=== PATIENT | male | born 1985 | race Caucasian/White ===

== ENCOUNTER 2017-02-04 19:50 | Emergency (ER) | payer SELFPAY ==
[~2017-02-04] VITALS: Ht 180.3 cm; Wt 106.6 kg
[~2017-02-04 19:50] MED LIST: ATIVAN2 MG PO; BACTRIM DS 8001 TAB PO; BACTROBAN22 TP; CELEXA20 MG PO; KEFLEX 500MG.500 MG PO; LORTAB 5/500 501 TAB PO; NOMEDS
--- NOTE | 2017-02-04 21:50 | Emergency Room Report ---
History of Present Illness Time Seen by 2009 Presenting Problem in Triage Pt arrived:Walked Presenting Problem:FELL AND CAUGHT SELF WITH L HAND . 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 N Clinical Suspician of Infection? N Mental Status: 1 - Regular (Normal Baseline) Sepsis Risk:Possible Sepsis Risk Have you (or family members/close friends) recently traveled outside the [place]? N If Yes, where/when: Have you had exposure to infectious disease within the past month? N TB? Other? Specify: Source patient, RN notes reviewed, family, old records Exam Limitations no limitations Comment fell with lt wrist injury tonight with pain and swelling Cardiac Chest Pain Chest pain indicative of cardiac No Timing/Duration this evening Severity moderate ALLERGIES Coded Allergies: No Known Allergies (07/24/15) Home Medications Active Scripts Mupirocin Calcium (Bactroban) 2 % TP BID #1 Ref 5 Prov: 02/15/11 Reported Medications No Home Medications (NO HOME MEDICATIONS) CITALOPRAM HYDROBROMIDE (Citalopram HBr) 20 MG PO DAILY Lorazepam (Ativan 2MG) 2 MG PO BID History Medical History General Angina: No CO: No Hypertension? No Hyperlipidemia? No CHF? No COPD? No Asthma? Yes Hernia? No Thyroid Problems? Yes CVA? No Seizures? No Diabetes? No UTI? No Stones? No GB Disease: No Hepatitis? No Cataracts? No Glaucoma? No MRSA? Yes TB? No Cancer? No More? No Immunization Hx DT/Tetanus 1-4 YRS Flu NEVER Pneumonia NEVER Surgical Hx Previous Surgery?Y Tonsils THYROID CYST REMOVED LT KNEE ARTHROSCOPY NASAL CYST REMOVED HYDROCELE Family History Family Hx Diabetes No CAD No Hypertension No Hyperlipidemia No Cancer No TB No Social History Smoking Hx Smoker: Current Every Day Smoker Tobacco: Yes Type Cigarettes Packs/day 1 1/2 - 2 Packs Alcohol Alcohol: No Drugs none Review of Systems All Other Systems Reviewed and Negative Constitutional denies fever Eyes denies drainage ENT denies: ear discharge, epistaxis, throat pain. Respiratory denies cough, denies shortness of breath, denies wheezing Cardiovascular denies chest pain, denies palpitations, denies syncope Gastrointestinal denies abdominal pain, denies diarrhea, denies vomiting Genitourinary denies: dysuria, frequency, hesitancy, hematuria. Musculoskeletal denies back pain, denies joint pain, denies joint swelling, denies neck pain Skin denies rash Psychiatric/Neurological denies headache, denies seizure Physical Exam Vital Signs Vital Signs Date Time Temp Pulse Resp B/P Pulse O2 O2 Flow FiO2 Ox Delivery Rate 02/04 1953 98.4 124 20 145/100 98 - WBC >12,000 or <4,000 or 10% bands? 2 or more SIRS Criteria Met? B/P:145/100 MAP:115 Creatinine >2.0? UA output<0.5ml/kg/hr for 2 hrs? Platelet count >100,000? Lactate >2.0mmol/1? INR >1.2 or PTT > than 60 sec? Evidence of Organ Dysfunction? Provider documented clinical suspician of infection? N Sepsis Criteria Count: 2 Sepsis Risk: Possible Sepsis Risk General Appearance no apparent distress Eye Exam - bilateral eye PERRL, bilateral eye EOMI Ear, Nose, Throat normal ENT inspection Neck supple Respiratory Status No: respiratory distress. Lung Sounds bilateral: lungs clear. 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 No Results/Orders Current Medication Orders Sig/David Start time Last Medication Dose Route Stop Time Status Admin Acetaminophen 1,000 MG ONCE ONE 02/04 2015 DCr 02/04 PO 02/04 Acetaminophen 0 .STK-MED ONE 02/04 2006 DCr PO Orders Procedure Date/time Status WRIST-3 VIEWS-LT 02/05 2004 Active XRAY/CT/US XRAY/CT/US XRAY wrist XR interpretation by reviewed by me Xray Results abnormal (fx seen) Departure Departure Time of Disposition 2141 Disposition DC Home or Self Care(routine) Clinical Impression Primary Impression: Wrist fracture, left Qualifiers: Encounter type: initial encounter Fracture type: closed Qualified Code: S62.102A - Fracture of unspecified carpal bone, left wrist, initial encounter for closed fracture Condition STABLE Referrals Lester Euceda MD Patient Instructions DI for Wrist Fracture Additional Instructions wear splint and use advil and pain meds and see ortho for follow up Discharge Counseling Counseled pt/family regarding diagnosis, test results, follow up needs ED Critical Care Critical Care No at [id number]
[2017-02-04 22:05] VITALS: BP 135/78
--- NOTE | 2017-02-05 05:57 | RADIOLOGY REPORT PS360 ---
WRIST-3 VIEWS-LT HISTORY: Pain following injury FELL ORDERING PHYSICIAN: Alejandro Leahy MD PATIENT AGE: 31 years COMPARISON: None FINDINGS: There is a nondisplaced longitudinal fracture involving the articular surface of the distal radius. No other significant anomalies are evident. IMPRESSION: Nondisplaced intra-articular fracture of the distal radius
== END 2017-02-04 22:05 | disposition home or self-care (01) ==
LOC: ER 19:50
DX: S62.102A Fracture of unspecified carpal bone, left wrist, initial encounter for closed fracture (principal); E07.9 Disorder of thyroid, unspecified; W18.30XA Fall on same level, unspecified, initial encounter; J45.909 Unspecified asthma, uncomplicated; F17.210 Nicotine dependence, cigarettes, uncomplicated